=== PATIENT | male | born 2000 | race Caucasian/White ===

== ENCOUNTER 2024-03-05 16:18 | Emergency (ER) | payer OTHER, SELFPAY ==
[2024-03-05 16:55] VITALS: BP 120/78; PULSE 89; RESP 16; TEMP 36.8; O2SAT 98
--- NOTE | 2024-03-05 18:17 | ED.EAR ---
HPI - Ear Problem General Chief complaint: Ear Stated complaint: right ear Time Seen by Provider: 03/05/24 18:00 Source: patient, family, RN notes reviewed and old records reviewed Mode of arrival: ambulatory Limitations: no limitations History of Present Illness HPI Narrative: 24 year old male accompanied by family member with complaints of cough and runny nose for the past 4-5 days and now he has right ear pain and decreased hearing from right ear.Patient reports that he has no shortness of breath or any known fevers, He has not taken any OTC medications for his symptoms. MD Complaint: ear pain and other (cough) Location: right ear Duration: constant Severity: moderate Discharge from ear: Reports no Treatment prior to arrival: none Related Data Allergies Allergy/AdvReac Type Severity Reaction Status Date / Time No Known Allergies Allergy Verified 03/05/24 16:21 Review of Systems Review of Systems: CONSTITUTIONAL: Denies malaise, chills, sweats, or fever. EYES: Denies visual changes, redness, or discharge. ENT: Reports rhinorrhea, congestion, sinus pain,positive for right otalgia and no sore throat. CARDIOVASCULAR: Denies chest pain, palpitations, or edema. RESPIRATORY: Reports cough.? Denies dyspnea. GASTROINTESTINAL: Denies abdominal pain, nausea, vomiting, diarrhea SKIN: Denies rash or itching. MUSCULOSKELETAL: Denies myalgia. NEUROLOGIC: Denies headache. All systems reviewed & are unremarkable except as noted in HPI and below PMFSH Surgical History Surgical History (Updated 03/08/24 @ 08:22 by Libby Pollard NP) [place] teeth extracted Social History Social History (Updated 03/08/24 @ 08:23 by Libby Pollard NP) Smoking status: Never smoker Alcohol intake: never Substance use: never Gender identity (if verbalized by the patient): Male Comments At time of signature, agree with nursing past medical, surgical, social and family history. There is no relevant family history pertinent to the presenting complaint Exam Narrative: GENERAL: Well-appearing, well-nourished, and in no acute distress. HEAD: Normocephalic EYES: PERRLA, conjunctivae clear ENT: Nares clear, turbinates edematous and erythematous, clear discharge. Mucous membranes moist.Right ear red and bulging, Left TM pearly brown with dull light reflex bilaterally; no tragal tenderness. Oropharynx erythematous without lesions. Tonsils not enlarged and without exudate, no drooling, no hoarseness, no trismus, uvula midline.post nasal drainage NECK: Supple. No lymphadenopathy CHEST: Clear to auscultation, breath sounds equal. No wheezing, rhonchi, rales, or stridor. No respiratory distress, speaks in full sentences.cough noted SAO2 98% on room air HEART: Regular rate and rhythm. No murmur heard. SKIN: Warm, dry, no rash. NEURO: Alert and oriented x3. PSYCH: Normal mood and affect Course Course Emergency Course: Patient is aware of diagnosis, understands and agrees to treatment plan.? Anticipatory guidance given.? Patient agrees to follow-up as directed and is aware of reasons to seek care at the emergency department. Portions of this record may have been created with voice recognition software Level of Care: Express Care Visit Vital Signs Vital signs: Vital Signs Temperature 36.8 C 03/05/24 16:55 Pulse Rate 89 03/05/24 16:55 Respiratory Rate 16 03/05/24 16:55 Blood Pressure 120/78 03/05/24 16:55 Pulse Oximetry 98 03/05/24 16:55 Oxygen Delivery Room Air 03/05/24 16:55 Temperature 36.8 C 03/05/24 16:55 Pulse Rate 89 03/05/24 16:55 Respiratory Rate 16 03/05/24 16:55 Blood Pressure 120/78 03/05/24 16:55 Pulse Oximetry 98 03/05/24 16:55 Oxygen Delivery Room Air 03/05/24 16:55 Reviewed Medical Decision Making Differential Diagnosis Differential Diagnosis: URI,otitis media,acute cough, bronchitis, viral infection Medical Records Medical records reviewed: Yes I reviewed the external patient's medical records. Vital Signs Vital Signs: Vital Signs Temperature 36.8 C 03/05/24 16:55 Pulse Rate 89 03/05/24 16:55 Respiratory Rate 16 03/05/24 16:55 Blood Pressure 120/78 03/05/24 16:55 Pulse Oximetry 98 03/05/24 16:55 Oxygen Delivery Room Air 03/05/24 16:55 Temperature 36.8 C 03/05/24 16:55 Pulse Rate 89 03/05/24 16:55 Respiratory Rate 16 03/05/24 16:55 Blood Pressure 120/78 03/05/24 16:55 Pulse Oximetry 98 03/05/24 16:55 Oxygen Delivery Room Air 03/05/24 16:55 Critical Care Time Critical Care Time Critical Care Time: No Discharge Plan Discharge Clinical Impression: Acute cough Otitis media Qualifiers: Otitis media type: serous Chronicity: acute Laterality: right Recurrence: not specified as recurrent Qualified Code(s): H65.01 - Acute serous otitis media, right ear Patient Disposition: Home, Self-Care Condition: Stable Instructions: Antibiotic Form, Ear Infection (GEN), Acute Cough (ED) Additional Instructions: Increase fluids especially juices and water [id number]-[id number] cough and cold medicine of your choice for your symptoms Zyrtec Claritin or Ariane daily Steroids as directed--take with food heat to the face 20-30 minutes 4-6 times a day for pain Salt water gargles, throat lozenges or throat sprays as desired Antibiotic as directed--finished the medication If your symptoms persist, change or worsen significantly before you can contact your personal physician then please, without delay, go to the emergency department for further evaluation. Follow-up with PCP in 7-10 days or sooner if needed Patient Language: Ukrainian Prescriptions: New azithromycin 500 mg tablet 500 mg PO DAILY 5 Days Qty: 5 0RF prednisone 20 mg tablet 20 mg PO BID Qty: 10 0RF Rx Instructions: Take with food complete all doses take a.m. and early p.m. Follow-up/Referrals: PHYSICIAN NOT ON STAFF,NONSTAFF [Primary Care Provider] - Time of Disposition: 18:22 Quality [place] Coma Scale Eyes: Open Verbal: Oriented and Alert Motor: Follows Commands [place] Coma Total Score: 15
--- NOTE | 2024-03-05 18:19 | ED.EAR ---
HPI - Ear Problem General Chief complaint: Ear Stated complaint: right ear Time Seen by Provider: 03/05/24 18:00 Source: patient, family, RN notes reviewed and old records reviewed Mode of arrival: ambulatory Limitations: no limitations Related Data Allergies Allergy/AdvReac Type Severity Reaction Status Date / Time No Known Allergies Allergy Verified 03/05/24 16:21 Review of Systems Review of Systems: CONSTITUTIONAL: Denies malaise, chills, sweats, or fever. EYES: Denies visual changes, redness, or discharge. ENT: Reports rhinorrhea, congestion, sinus pain, otalgia and sore throat. CARDIOVASCULAR: Denies chest pain, palpitations, or edema. RESPIRATORY: Reports cough.? Denies dyspnea. GASTROINTESTINAL: Denies abdominal pain, nausea, vomiting, diarrhea SKIN: Denies rash or itching. MUSCULOSKELETAL: Denies myalgia. NEUROLOGIC: Denies headache. All systems reviewed & are unremarkable except as noted in HPI and below PMFSH Comments At time of signature, agree with nursing past medical, surgical, social and family history. There is no relevant family history pertinent to the presenting complaint Exam Narrative: GENERAL: Well-appearing, well-nourished, and in no acute distress. HEAD: Normocephalic EYES: PERRLA, conjunctivae clear ENT: Nares clear, turbinates edematous and erythematous, clear discharge. Mucous membranes moist. TM pearly brown with dull light reflex bilaterally; no tragal tenderness. Oropharynx erythematous without lesions. Tonsils not enlarged and without exudate, no drooling, no hoarseness, no trismus, uvula midline. NECK: Supple. No lymphadenopathy CHEST: Clear to auscultation, breath sounds equal. No wheezing, rhonchi, rales, or stridor. No respiratory distress, speaks in full sentences. HEART: Regular rate and rhythm. No murmur heard. SKIN: Warm, dry, no rash. NEURO: Alert and oriented x3. PSYCH: Normal mood and affect Course Course Emergency Course: Patient is aware of diagnosis, understands and agrees to treatment plan.? Anticipatory guidance given.? Patient agrees to follow-up as directed and is aware of reasons to seek care at the emergency department. Portions of this record may have been created with voice recognition software Level of Care: Express Care Visit Vital Signs Vital signs: Vital Signs Temperature 36.8 C 03/05/24 16:55 Pulse Rate 89 03/05/24 16:55 Respiratory Rate 16 03/05/24 16:55 Blood Pressure 120/78 03/05/24 16:55 Pulse Oximetry 98 03/05/24 16:55 Oxygen Delivery Room Air 03/05/24 16:55 Temperature 36.8 C 03/05/24 16:55 Pulse Rate 89 03/05/24 16:55 Respiratory Rate 16 03/05/24 16:55 Blood Pressure 120/78 03/05/24 16:55 Pulse Oximetry 98 03/05/24 16:55 Oxygen Delivery Room Air 03/05/24 16:55 Reviewed Medical Decision Making Vital Signs Vital Signs: Vital Signs Temperature 36.8 C 03/05/24 16:55 Pulse Rate 89 03/05/24 16:55 Respiratory Rate 16 03/05/24 16:55 Blood Pressure 120/78 03/05/24 16:55 Pulse Oximetry 98 03/05/24 16:55 Oxygen Delivery Room Air 03/05/24 16:55 Temperature 36.8 C 03/05/24 16:55 Pulse Rate 89 03/05/24 16:55 Respiratory Rate 16 03/05/24 16:55 Blood Pressure 120/78 03/05/24 16:55 Pulse Oximetry 98 03/05/24 16:55 Oxygen Delivery Room Air 03/05/24 16:55 Discharge Plan Discharge Clinical Impression: Acute cough Otitis media Qualifiers: Otitis media type: serous Chronicity: acute Laterality: right Recurrence: not specified as recurrent Qualified Code(s): H65.01 - Acute serous otitis media, right ear Patient Disposition: Home, Self-Care Condition: Stable Instructions: Antibiotic Form, Ear Infection (GEN), Acute Cough (ED) Additional Instructions: Increase fluids especially juices and water Dopj-dut-eqepcyn cough and cold medicine of your choice for your symptoms Zyrtec Claritin or Ariane daily Steroids as directed--take with food heat to the face 20-30 minutes 4-6 times a day for pain Salt water gargles, throat lozenges or throat sprays as desired Antibiotic as directed--finished the medication If your symptoms persist, change or worsen significantly before you can contact your personal physician then please, without delay, go to the emergency department for further evaluation. Follow-up with PCP in 7-10 days or sooner if needed Patient Language: Kiswahili Prescriptions: New azithromycin 500 mg tablet 500 mg PO DAILY 5 Days Qty: 5 0RF prednisone 20 mg tablet 20 mg PO BID Qty: 10 0RF Rx Instructions: Take with food complete all doses take a.m. and early p.m. Follow-up/Referrals: PHYSICIAN NOT ON STAFF,NONSTAFF [Primary Care Provider] - Time of Disposition: 18:22 Quality [place] Coma Scale Eyes: Open Verbal: Oriented and Alert Motor: Follows Commands [place] Coma Total Score: 15
== END 2024-03-05 18:25 | disposition home or self-care (01) ==
PROVIDERS: Emergency Provider Registered Nurse
DX: R05.1 Acute cough (principal); H65.01 Acute serous otitis media, right ear
CPT/HCPCS: 99213; G0463